=== PATIENT | male | born 1955 | race Caucasian/White ===

== ENCOUNTER → 2017-11-06 | Outpatient (CLI) | payer MEDICARE, OTHER ==
[~2017-11-06] MED LIST: IBP800T PO; LEVOTHYROXINE; LVT.05T PO; MTP25TSR PO; MULT-974 PO; MULT1TAB63; OXYC1TAB87 PO; PRX20T PO
--- NOTE | 2017-11-06 18:52 | Diagnostic Imaging Report ---
INDICATION: Cough and shortness of breath. COMPARISON: 02/28/2013. FINDINGS: Frontal and lateral views of the chest demonstrate clear lungs bilaterally. The heart is normal. There is no pneumothorax. Osseous structures are normal. IMPRESSION: Negative chest. Dictated by: Dictated on workstation # [id number]
--- NOTE | 2017-11-06 19:41 | Diagnostic Imaging Report ---
INDICATION: Neck pain and injury COMPARISON: None FINDINGS: Three views of the cervical column demonstrate stable appearing anterior fusion of C6-C7. Degenerative disc disease and facet arthropathy is seen. There is no traumatic malalignment or fracture. Carotid artery calcifications are seen IMPRESSION: 1. No traumatic malalignment or fracture 2. Mild diffuse degenerative changes 3. Carotid artery atherosclerosis. Dictated by: Dictated on workstation # [id number]
== END ==
LOC: RAD 18:01
DX: S19.9XXA Unspecified injury of neck, initial encounter (principal); M47.22 Other spondylosis with radiculopathy, cervical region; I65.23 Occlusion and stenosis of bilateral carotid arteries; R05 Cough; R06.02 Shortness of breath
CPT/HCPCS: 71046; 72040

== ENCOUNTER → 2017-11-12 | Outpatient (CLI) | payer MEDICARE, OTHER ==
--- NOTE | 2017-11-12 11:44 | Diagnostic Imaging Report ---
PROCEDURE: MR imaging cervical spine without contrast. TECHNIQUE: Multiplanar, multisequence MR imaging of the cervical spine was performed without contrast. INDICATION: Neck pain and bilateral arm pain. COMPARISON: No prior studies are available for comparison. FINDINGS: Curvature and alignment of the cervical spine is normal. There are postop changes. There appears to be an anterior plate and screws transfixing the C6-7 level. Partial osseous fusion of the vertebrae at the C5 and C6 levels. Marrow signal intensity is unremarkable. No geographic marrow lesion is seen. There is generalized degenerative disc disease, greatest at C3-4 and C4-5 levels with disc space narrowing, desiccation and endplate osteophyte formation. Spinal cord demonstrates normal homogeneous signal intensity. C2-3: Mild right neural foraminal narrowing is seen. Central canal and left neural foramen are patent. C3-4: Endplate osteophytes indent the ventral thecal sac. There is mild to moderate central canal stenosis with moderate bilateral neural foraminal stenosis. C4-5: Endplate osteophytes indent the ventral thecal sac. There is mild central canal narrowing. There is moderate bilateral neural foraminal stenosis, greatest on the right. C5-6: No significant central canal or neural foraminal stenosis is identified. C6-7: Endplate osteophytes are present. There is mild bilateral neural foraminal narrowing. Central canal is patent. C7-T1: Unremarkable. IMPRESSION: Postop changes cervical fusion C5-C7. There is generalized cervical spondylosis with multilevel central canal and neural foraminal narrowing described level by level above. Dictated by: Dictated on workstation # [id number]
== END ==
LOC: RAD 10:56
DX: M48.02 Spinal stenosis, cervical region (principal); M99.71 Connective tissue and disc stenosis of intervertebral foramina of cervical region; M47.22 Other spondylosis with radiculopathy, cervical region; M50.11 Cervical disc disorder with radiculopathy, high cervical region; Z98.1 Arthrodesis status
CPT/HCPCS: 72141

== ENCOUNTER → 2021-02-15 | Outpatient (CLI) | payer MEDICARE ==
--- NOTE | 2021-02-15 12:42 | Diagnostic Imaging Report ---
INDICATION: Low back pain. No history of trauma. EXAMINATION: Lumbosacral spine, 3 views. FINDINGS: There is good alignment of the lumbosacral spine. Body height is well-maintained. Pedicles are intact. Degenerative facet disease is noted with hypertrophic changes. There is loss of disc space height, most notably at L2-L3, with vacuum phenomena. Hypertrophic endplate changes are seen anteriorly throughout. SI joints are symmetrical with mild sclerotic change. IMPRESSION: There is moderate to moderately severe arthritic change of the lumbar discs and facets. Dictated by: Dictated on workstation # [id number]
== END ==
LOC: RAD 11:04
DX: M47.812 Spondylosis without myelopathy or radiculopathy, cervical region (principal); M51.36 Other intervertebral disc degeneration, lumbar region
CPT/HCPCS: 72100

== ENCOUNTER → 2021-02-24 | Outpatient (CLI) | payer MEDICARE ==
--- NOTE | 2021-02-24 10:44 | Diagnostic Imaging Report ---
PROCEDURE: MRI lumbar spine. TECHNIQUE: Multiplanar, multisequence MRI of the lumbar spine was performed without contrast. INDICATION: Lower back pain COMPARISON: 02/15/2021 FINDINGS: 5 lumbar type vertebral bodies are present. Grade 1 anterolisthesis of L5 on S1 is present measuring 3 mm. No additional anterolisthesis or retrolisthesis within the lumbar spine. Scattered endplate degenerative changes and Schmorl's nodes are identified throughout the visualized thoracolumbar spine. This includes minimal degenerative marrow edema at L2/L3. The majority of the endplate degenerative changes are fatty endplate degenerative changes. Mild marrow edema identified within the bilateral pedicles of L4 and L5. No evidence of a recent vertebral body compression deformity. The conus medullaris terminates at L1/L2. The paraspinal soft tissues are unremarkable. The central spinal canal throughout the lumbar spine appears diffusely narrowed. T12/L1: No significant central canal or neuroforaminal stenosis. L1/L2: Mild disc desiccation and disc space height loss. Mild facet joint degenerative changes. Small diffuse disc bulge. Ligamentum flavum hypertrophy. There is resulting moderate trefoil-type central canal stenosis. Moderate bilateral neuroforaminal stenosis. L2/L3: Moderate disc space height loss. Moderate facet joint degenerative changes. Ligamentum flavum hypertrophy. Diffuse disc bulge. There is resulting severe central canal stenosis with AP dimension of the thecal sac measuring 4.7 mm. Severe left and moderate to severe right neuroforaminal stenosis. L3/L4: Mild disc space height loss. Severe right and moderate left facet joint degenerative changes. Ligamentum flavum hypertrophy. Prominent diffuse disc bulge. There is resulting severe central canal stenosis with AP dimension of the thecal sac measuring 4.2 mm. Severe bilateral neuroforaminal stenosis. L4/L5: Moderate disc space height loss and disc desiccation. Severe facet joint degenerative changes. Ligamentum flavum hypertrophy. Diffuse disc bulge. There is resulting severe trefoil-type central canal stenosis with severe bilateral neuroforaminal stenosis. L5/S1: Minimal grade 1 anterolisthesis. Severe bilateral facet joint degenerative changes. Small diffuse disc bulge. There is resulting severe central canal stenosis with effacement of the bilateral lateral recesses. Moderate to severe bilateral neuroforaminal stenosis. IMPRESSION: Severe multilevel degenerative changes as described above with multilevel severe central canal and neuroforaminal stenosis. This includes severe central canal stenosis at L2/L3 through L5/S1. Marrow edema within the bilateral pedicles of L4 and L5 without discrete fracture. Although this could simply be degenerative in nature, this may also relate to underlying stress reaction changes. Dictated by: Dictated on workstation # [id number]
== END ==
LOC: RAD 08:58
DX: M47.817 Spondylosis without myelopathy or radiculopathy, lumbosacral region (principal); M51.27 Other intervertebral disc displacement, lumbosacral region; M48.07 Spinal stenosis, lumbosacral region; M51.36 Other intervertebral disc degeneration, lumbar region; M43.16 Spondylolisthesis, lumbar region
CPT/HCPCS: 72148